=== PATIENT | female | born 2000 | race Caucasian/White ===

== ENCOUNTER 2024-03-26 13:38 | Outpatient (AMB) | payer OTHER, SELFPAY ==
--- NOTE | 2024-03-26 13:41 | AM.OFFWIN_ITS ---
Intake Vital Signs 03/26/24 13:51 Height 5 ft 3.98 in Weight 124 lb 2 oz BMI 21.3 BP 98/62 Blood Pressure Location Lt brachial Position Sitting Respiration 12 Pulse 58 Pulse Source Pulse Oximeter Temp 98.5 F Temp Source Oral Pulse Oximetry (%) 99 Oxygen Delivery Method Room Air Intake Visit Reasons: est/ left knee pain Intake Note: Left knee pain Patient Tobacco Use Status: Never used Tobacco Is last menstrual period known: Yes Last menstrual period: 04/17/24 Allergies No Known Allergies Allergy (Verified 03/26/24 13:50) Do you need a note to return to daycare/school/sports/work: No HPI est/ left knee pain HPI Details Pt is a 23 y/o female who presents today with complaints of left knee pain. It started a few days ago with sharp pain beneath under the left knee cap and in the front of her knee. She states she can feel her cartilage rubbing. No instability. She has been getting some swelling. She is currently training for a marathon. No erythema or prior injury. 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 [facility] Social History Patient Tobacco Use Status: Never used Tobacco Female Reproductive History Menstrual Date of last menstrual period: 04/17/24 Physical Exam Vital Signs: Last Vital Signs Temp 98.5 F 03/26/24 13:51 Pulse 58 03/26/24 13:51 Resp 12 03/26/24 13:51 BP 98/62 03/26/24 13:51 Pulse Ox 99 03/26/24 13:51 Oxygen Delivery Method Room Air 03/26/24 13:51 BMI result Body Mass Index 21.3 Const Orientation/consciousness: patient oriented x3 Neck Thyroid: Thyroid normal Lymphatic: no lymphadenopathy noted Resp Auscultation: clear to auscultation bilaterally Cardio Rate: regular rate Rhythm: regular rhythm Heart sounds: S1 normal heart sound present and S2 normal heart sound present Skin General skin exam: no rashes or lesions noted Neuro General: patient oriented x3, gait normal and no focal motor deficits Extrem Other: There is some mild soft tissue swelling noted on the anterior aspect of the left knee. The left knee is tender to palpation throughout. Negative anterior and posterior drawer test. no valgus or varus pain. Assessment & Plan Assessment & Plan (1) Acute pain of left knee: Code(s): M25.562 - Pain in left knee Plan: xr ordered advised to rest, ice, and stretch discussed possibly of pt/ortho if no improvement Orders: Orders XR knee LT 3V Today M25.562 - Pain in left knee Coding Level of Care Code Est Pt Level 3 (68199) Diagnoses Acute pain of left knee M25.562
[2024-03-26 13:51] VITALS: BP 98/62; PULSE 58; RESP 12; TEMP 36.9; O2SAT 99; BMI 21.3
== END 2024-03-26 14:46 | disposition home or self-care (01) ==
PROVIDERS: PCP Pediatrics; Visit Provider Physician Assistant
DX: M25.562 Pain in left knee (principal)
CPT/HCPCS: 99213